=== PATIENT | female | born 1955 | race Caucasian/White ===

== ENCOUNTER → 2016-12-26 14:35 | Outpatient (CLI) | payer OTHER ==
[2010-05-06 14:53] VITALS: BMI 39.8
== END | disposition home or self-care (01) ==
LOC: D.MAMMO 12-02 10:15
DX: Z12.31 Encounter for screening mammogram for malignant neoplasm of breast (principal)

== ENCOUNTER 2019-02-19 12:00 | Outpatient (CLI) | payer OTHER ==
[2010-05-06 14:53] VITALS: BMI 39.8
== END 2019-02-19 12:30 | disposition home or self-care (01) ==
LOC: D.MAMMO 12:00
PROVIDERS: ATTEND Family Medicine
DX: Z12.31 Encounter for screening mammogram for malignant neoplasm of breast (principal)